=== PATIENT | female | born 1945 | race Caucasian/White ===

== ENCOUNTER 2020-07-26 08:40 | Outpatient (CLI) | payer MEDICARE, SELFPAY ==
--- NOTE | 2020-07-26 09:15 | FL_ITS ---
WS: [id number] UPPER GI WITH AIR TECHNICAL: Double contrast upper GI with thin and thick barium. FLUOROSCOPY TIME: 3 minutes CLINICAL INFORMATION: R13.10 Dysphagia, unspecified COMPARISON: None. FINDINGS: Swallowing: Normal. Esophagus: Moderate esophageal dysmotility with delayed emptying and tertiary contractions in the mid and distal esophagus. Mild dilatation of the distal esophagus with delayed emptying. Esophagitis in the mid and distal esophagus. No evidence of high-grade stricture or obstructing mass. Gastroesophageal reflux: Moderate active reflux observed into the upper esophagus on supine and uprig ht imaging with delayed emptying. Small esophageal hiatal hernia. Stomach: Thickened gastric rugae in the stomach consistent with gastritis. Contrast stomach otherwise normal. Duodenum: Normal. Other findings: Chronic appearing compression deformities of the lumbar spine with mild compression s uperior endplates at L1, L2, L3, and L4. Osteopenia. FL/FL upper GI w air* [id number] IMPRESSION: 1. Moderate esophageal dysmotility with delayed emptying and tertiary contract ions in the mid and distal esophagus. Mild dilatation of the distal esophagus w ith delayed emptying. 2. Small esophageal hiatal hernia with moderate active reflux observed into th e upper esophagus on the supine and upright imaging. 3. Esophagitis in the mid to distal esophagus. Gastritis in the proximal stoma ch. 4. Unremarkable stomach and proximal duodenum.
== END 2020-07-26 08:41 | disposition home or self-care (01) ==
LOC: RAD 08:44
PROVIDERS: PCP Nurse Practitioner Family; Visit Provider Surgery
DX: R13.10 Dysphagia, unspecified (principal); K20.9 Esophagitis, unspecified; K44.9 Diaphragmatic hernia without obstruction or gangrene; K21.9 Gastro-esophageal reflux disease without esophagitis
CPT/HCPCS: 74246

== ENCOUNTER → 2024-11-11 07:52 | Outpatient (BNVA) | payer MEDICARE, SELFPAY | PROVIDERS: PCP Nurse Practitioner Family; Visit Provider Podiatrist Foot & Ankle Surgery | DX: M25.572 Pain in left ankle and joints of left foot; M79.672 Pain in left foot; M76.822 Posterior tibial tendinitis, left leg; R22.42 Localized swelling, mass and lump, left lower limb | CPT/HCPCS: 73610; 73630; 99203 ==

== ENCOUNTER 2024-12-09 14:25 | Outpatient (CLI) | payer MEDICARE, SELFPAY | END 2024-12-09 14:26 | disposition home or self-care (01) | LOC: SPT 14:25 | PROVIDERS: PCP Nurse Practitioner Family; Visit Provider Podiatrist Foot & Ankle Surgery | DX: Z46.89 Encounter for fitting and adjustment of other specified devices (principal); M76.829 Posterior tibial tendinitis, unspecified leg; R22.42 Localized swelling, mass and lump, left lower limb | CPT/HCPCS: L3030 ==

== ENCOUNTER → 2025-02-24 08:02 | Outpatient (BNVA) | payer MEDICARE, SELFPAY | PROVIDERS: PCP Nurse Practitioner Family; Visit Provider Podiatrist Foot & Ankle Surgery | DX: R22.42 Localized swelling, mass and lump, left lower limb (principal); M76.822 Posterior tibial tendinitis, left leg | CPT/HCPCS: 99213 ==